=== PATIENT | female | born 1990 | race African-American/Black ===

== ENCOUNTER 2017-08-29 03:30 | Emergency (ER) | payer MEDICAID ==
[~2017-08-29] VITALS: Ht 162.6 cm; Wt 85.0 kg
[~2017-08-29 03:30] MED LIST: CARI350T PO; LOV40 SQ; PREN-88 PO; SERT50TA PO
[2017-08-29] MEDS ORDERED: ONDANSETRON HCL 4MG/2ML VIAL IV STA (03:43)
[2017-08-29] MEDS ORDERED: MORPHINE SULFATE 4 MG/ML CPJ (NOT FOR IM USE) IV STA (03:43)
[2017-08-29 03:55] LABS: HEMATOCRIT. 36.6 % (36.0-48.0); HEMOGLOBIN. 12.2 g/dL (12.0-16.0); LYMPHOCYTES % 49.8 % (20.0-50.0); MEAN CORPUSCULAR HEMOGLOBIN 29.7 pg (28.0-32.0); MEAN CORPUSCULAR VOLUME 89.2 fL (81.0-99.0); MONOCYTES % 5.9 % (2.0-8.0); NEUTROPHILS % 40.3 % (40.0-76.0); PLATELET 219 x1000/uL (130-400); RED BLOOD CELL COUNT 4.11 mill/uL (4.2-5.4)
[2017-08-29 04:02] LABS: HCG SCREEN NEGATIVE
[2017-08-29 04:06] LABS: CHLORIDE 110 mEq/L (98-107)
[2017-08-29 04:07] LABS: INR 3.1; PROTHROMBIN TIME 32.1 sec (9.4-11.6)
[2017-08-29 04:22] LABS: CARBON DIOXIDE 20 mEq/L (21-32)
[2017-08-29] MEDS ORDERED: SODIUM CHLORIDE 0.9% 1,000 ML IV ONE ×2 (04:50→05:48)
[2017-08-29] MEDS ORDERED: IOHEXOL-300 100 ML BOTTLE ONE (05:43)
[2017-08-29] MEDS ORDERED: MORPHINE SULFATE 4 MG/ML CPJ (NOT FOR IM USE) IV ONE (05:45)
[2017-08-29 08:00] VITALS: BP 100/53
== END 2017-08-29 08:00 | disposition home or self-care (01) ==
LOC: ER 03:31
DX: R07.89 Other chest pain (principal); R51 Headache; F17.210 Nicotine dependence, cigarettes, uncomplicated; F12.10 Cannabis abuse, uncomplicated; Z86.718 Personal history of other venous thrombosis and embolism; Z86.711 Personal history of pulmonary embolism; Z79.01 Long term (current) use of anticoagulants; Y04.0XXA Assault by unarmed brawl or fight, initial encounter; Y93.89 Activity, other specified; Y92.89 Other specified places as the place of occurrence of the external cause; Y99.8 Other external cause status
CPT/HCPCS: 36415; 70450; 71010; 71260; 74177; 80053; 83605; 83690; 84703; 85025; 85610; 86850; 86900; 86901; 87040; 93005; 96361; 96374; 96375; 96376; 99285; J2270; J2405; J7030; Q9967

== ENCOUNTER 2017-10-06 17:31 | Emergency (ER) | payer MEDICAID ==
[~2017-10-06] VITALS: Ht 165.1 cm; Wt 82.0 kg
[2017-10-06] MEDS ORDERED: HYDROCODONE/ACETAMINOPHEN 5/325MG TABLET PO ONE (18:45)
[2017-10-06 20:20] VITALS: BP 96/55
[2017-10-06] MEDS ORDERED: ACETAMINOPHEN WITH CODEINE 300/30MG TABLET PO ONE (20:45)
== END 2017-10-06 20:50 | disposition home or self-care (01) ==
LOC: ER 17:39
DX: S60.212A Contusion of left wrist, initial encounter (principal); S60.222A Contusion of left hand, initial encounter; F12.10 Cannabis abuse, uncomplicated; Z86.718 Personal history of other venous thrombosis and embolism; Z98.890 Other specified postprocedural states; Z88.6 Allergy status to analgesic agent; W22.8XXA Striking against or struck by other objects, initial encounter; Y93.89 Activity, other specified; Y92.89 Other specified places as the place of occurrence of the external cause; Y99.8 Other external cause status
CPT/HCPCS: 29125; 73110; 73130; 81025; 99284